=== PATIENT | male | born 1980 | race Caucasian/White ===

== ENCOUNTER → 2017-01-09 | Outpatient (CLI) | payer OTHER ==
--- NOTE | 2017-01-09 11:30 | MRI ---
MRI left shoulder without contrast Indication: Stabbing left shoulder pain Comparison: None Technique: Multiplanar, multi sequence MR images of the left shoulder were obtained without contrast. Findings: The marrow signal bony alignment are within normal limits, without acute fracture or sublux ation. Mild degenerative changes of the AC joint are noted, with mild effacement of the underlying galvan praspinatus at the musculotendinous junction. There is intermediate signal of the distal supraspinatus and infraspinatus tendons, consistent with t endinosis. There is linear fluid signal within the substance of the conjoined tendon extending anteri iron to the articular sided fibers of the distal supraspinatus tendon and propagating posterior media lly along the infraspinatus musculotendinous junction. No full-thickness cuff tear or tendon retracti on identified. The intra-articular biceps tendon is grossly intact. There is abnormal signal of the s uperior labrum extends slightly anteriorly and posteriorly. No paralabral cyst. No glenohumeral joint effusion. No muscle atrophy about the shoulder. Impression: 1. Partial interstitial tear of the distal conjoined tendon with delaminating component that propagat es along the infraspinatus musculotendinous junction, as well as probable tear extension to the artic ular side of the distal supraspinatus tendon. No evidence for full-thickness cuff tear or tendon retr action. 2. Suggestion of SLAP tear. Correlation recommended. Consider MR arthrography, if indicated. 3. Mild AC joint DJD. Reported By:
--- NOTE | 2017-01-13 15:20 | MRI ---
HISTORY: Cervicalgia. Neck pain with shooting pain through the left shoulder Study: Noncontrast MRI of the cervical spine Comparison: No priors Technique: Multiple planes and pulse sequences realizing evaluating the cervical spine by magnetic re sonance imaging. No IV contrast agents were utilized. Findings: No fracture or subluxation is seen. There is reversal of the normal cervical lordosis in the lower ce rvical region. There is slight narrowing of the disc space at C6-7 with a large left paracentral-suba rticular disc protrusion. This is seen to efface the cervical cord on the left side. There is narrowi ng of the neural foramen on the left with exiting nerve root impingement. The disc material appears t o be extruded at near of the neural foramen on the left. There is mild central spinal stenosis second mohsen to this process also. A smaller subarticular disc protrusion is present on the right at C5-6. Rem ainder of the levels are unremarkable. IMPRESSION: Large left paracentral-subarticular disc protrusion/extrusion with narrowing of the left neural trini en at C6-7. There is some evidence to suggest mild central spinal stenosis. Smaller subarticular disc protrusion present on the right at C5-6. Reported By:
== END | disposition home or self-care (01) | DRG 552 ==
LOC: RAD 08:34
PROVIDERS: ATTEND Internal Medicine
DX: M54.2 Cervicalgia (principal); M51.37 Other intervertebral disc degeneration, lumbosacral region; M25.512 Pain in left shoulder; M54.17 Radiculopathy, lumbosacral region; S46.812A Strain of other muscles, fascia and tendons at shoulder and upper arm level, left arm, initial encounter; X58.XXXA Exposure to other specified factors, initial encounter; M19.012 Primary osteoarthritis, left shoulder
CPT/HCPCS: 72141; 73221